=== PATIENT | female | born 1955 | race Hispanic/Latino ===

== ENCOUNTER 2017-09-06 17:47 | Observation (INO) | payer SELFPAY ==
[2017-09-06] MEDS ORDERED: Sodium Chloride 0.9% 500 ML IV STA (18:10)
[2017-09-06 18:24] LABS: BASO % 0.2 % (0.0-2.0); EOS # 0.4 K/uL (0.0-0.7); EOS % 1.5 % (0.0-4.0); HEMATOCRIT 44.2 % (34.0-47.0); LYMPH # 2.1 K/uL (1.0-4.3); LYMPH % 8.6 % (20.0-40.0); MEAN CELL VOLUME 92.4 fl (81.0-99.0); MEAN CORPUSCULAR HEMOGLOBIN 29.9 pg (27.0-31.0); MEAN CORPUSCULAR HGB CONC 32.4 g/dL (33.0-37.0); MONO # 1.1 K/uL (0.0-0.8); MONO % 4.6 % (0.0-10.0); NEUT # 20.9 K/uL (1.8-7.0); NEUT % 85.1 % (50.0-75.0); PLATELET COUNT 279 K/uL (130-400); RED CELL DISTRIBUTION WIDTH 11.9 % (11.5-14.5); WHITE BLOOD COUNT 24.6 K/uL (4.8-10.8)
--- NOTE | 2017-09-06 18:30 | ED PDOC ---
Syncope/Near Syncope/Dizziness Time Seen by Provider: 09/06/17 17:55 Chief Complaint (Nursing): GI Problem Chief Complaint (Provider): Syncope History Per: Patient History/Exam Limitations: no limitations Onset/Duration Of Symptoms: Hrs (x 5) Current Symptoms Are (Timing): Still Present Additional Complaint(s): Blanca Valente is a 61 year old female with a history of hypertension and high cholesterol, presenting to the ED after passing out with associated vomiting and diarrhea, onset about 6 hours ago. Patient was on a bus from [place] at 12 pm today when she started feeling nauseous after eating. She reports taking Gravol, the [place] version of Dramamine, with no relief. 1 hour prior to arrival, she experienced multiple episodes of vomiting and watery diarrhea. Patient fainted for a short amount of time and had no postictal state. She reports feeling abdominal pain at lunch, but none since then. The patient states that she still feels nauseous and had another episode of vomiting while in the emergency room. PMD: none Past Medical History Reviewed: Historical Data, Nursing Documentation, Vital Signs Vital Signs: Last Vital Signs Temp 97.7 F 09/06/17 17:52 Pulse 65 09/06/17 17:52 Resp 16 09/06/17 17:52 BP 132/89 09/06/17 18:10 Pulse Ox 96 09/06/17 17:52 - Medical History PMH: HTN, Hypercholesterolemia Denies: Chronic Kidney Disease - Surgical History Other surgeries: Hysterectomy - Family History Family History: States: [place], CAD, Hypertension - Social History Current smoker - smoking cessation education provided: No Alcohol: None Drugs: Denies - Allergies Allergies/Adverse Reactions: Allergies Allergy/AdvReac Type Severity Reaction Status Date / Time No Known Allergies Allergy Verified 09/06/17 17:55 Review of Systems ROS Statement: Except As Marked, All Systems Reviewed And Found Negative (as per HPI) Constitutional: Positive for: Chills, Malaise, Other (fatigue) Gastrointestinal: Positive for: Nausea, Vomiting (non bloody, non bilious), Diarrhea (watery). Negative for: Abdominal Pain Physical Exam - Reviewed Nursing Documentation Reviewed: Yes Vital Signs Reviewed: Yes - Physical Exam Appears: Positive for: In Acute Distress (actively vomiting in ER, tired appearing) Head Exam: Positive for: ATRAUMATIC, NORMAL INSPECTION Skin: Positive for: Warm, Pallor Eye Exam: Positive for: EOMI, PERRL ENT: Positive for: Pharynx Is (clear), Other (dry mucus membranes) Neck: Positive for: Painless ROM, Supple Cardiovascular/Chest: Positive for: Regular Rate, Rhythm, Chest Non Tender. Negative for: Murmur Respiratory: Positive for: Normal Breath Sounds. Negative for: Wheezing Gastrointestinal/Abdominal: Positive for: Soft. Negative for: Tenderness, Mass , Distended, Guarding Back: Positive for: Normal Inspection. Negative for: Decreased ROM Extremity: Positive for: Normal ROM. Negative for: Deformity Lymphatic: Negative for: Adenopathy Neurologic/Psych: Positive for: Alert, Mood/Affect (mildly anxious). Negative for: Motor/Sensory Deficits - Laboratory Results Result Diagrams: 09/06/17 18:20 09/06/17 18:20 - ECG O2 Sat by Pulse Oximetry: 96 (RA) Pulse Ox Interpretation: Normal Medical Decision Making Medical Decision Making: Time: 18:10 Impression: syncope, vomiting, diarrhea Differential diagnoses include, but are not limited to gastroenteritis, dehydration, electrolyte abnormality, cardiac event Initial Plan: --EKG --CMP --Lipase --Magnesium --Phosphorus --Troponin I --Urine dipstick --EKG [EDNUTRX] --CBC with differentials --Partial Thromboplastin Time --Prothrombin Time --Sodium Chloride IV 500 mls/hr --Pepcid 20 mg IVP --Zofran 8 mg IV Labs demonstrate hypokalemia and marked leukocytosis. --Potassium Chloride 50 ml IVPB Reviewed findings with pt. Needs hospitalization for syncope, hypokalemia and gastroenteritis. DW pt findings and plan of care. Scribe Attestation: Documented by Nelly Lopez, acting as a scribe for Mirna Chao MD. Provider Scribe Attestation: All medical record entries made by the Scribe were at my direction and personally dictated by me. I have reviewed the chart and agree that the record accurately reflects my personal performance of the history, physical exam, medical decision making, and the department course for this patient. I have also personally directed, reviewed, and agree with the discharge instructions and disposition Disposition - Clinical Impression Clinical Impression: Syncope, Gastroenteritis, Hypokalemia Counseled Patient/Family Regarding: Studies Performed, Diagnosis - Disposition Disposition Time: 21:00 Condition: GUARDED - Pt Status Changed To: Hospital Disposition Of: Observation - POA Present On Arrival: Falls Or Trauma
[2017-09-06 18:34] LABS: ALB/GLOB RATIO 1.6 (1.0-2.1); ALKALINE PHOSPHATASE 71 U/L (38-126); ALT/SGPT 34 U/L (9-52); AST/SGOT 33 U/L (14-36); BILIRUBIN,TOTAL 0.7 mg/dl (0.2-1.3); BLOOD UREA NITROGEN 13 mg/dl (7-17); CALCIUM 9.4 mg/dL (8.4-10.2); CARBON DIOXIDE 24 mmol/L (22-30); CHLORIDE 104 mmol/L (98-107); GFR AFRICAN-AMERICAN > 60; GLUCOSE,RANDOM 177 mg/dL (65-105); LIPASE 54 U/L (23-300); MAGNESIUM 1.6 MG/DL (1.6-2.3); PHOSPHOROUS 3.8 mg/dl (2.5-4.5); POTASSIUM 3.1 MMOL/L (3.6-5.0); SODIUM 141 mmol/l (132-148); TOTAL PROTEIN 7.9 G/DL (6.3-8.2)
[2017-09-06] MEDS ORDERED: Potassium CL 10mEq/100ml 100 ML IVPB ONE (18:38)
[2017-09-06] MEDS ORDERED: Potassium CL 10 MEQ/50 ML 50 ML IVPB ONE (18:45)
[2017-09-06 19:19] LABS: PARTIAL THROMBOPLASTIN TIME 30.3 Seconds (25.6-37.1)
[2017-09-06 20:48] LABS: EOSINOPHIL 2 % (0-7); NEUTROPHIL 85 % (42-75); TOTAL CELLS COUNTED 100
[2017-09-06 20:49] LABS: LARGE PLATELETS PRESENT
--- NOTE | 2017-09-06 21:42 | CP.PCM.HP ---
History of Present Illness - History of Present Illness History of Present Illness: CC: n/v/d, syncope HPI: This is a 61 y/o female with HTN and HLD who comes in with n/v/d that started after lunch while she and a group of people were travelling from [place] to [facility]. She had an episode of syncope after a period of time having n/v/d. Denies f/c. Denies CP/SOB. Denies palpitations. Never had syncope in the past. ROS: 14 systems reviewed, negative other than HPI MHx: HTN, HLD; KENDRA on CPAP SHx: Hysterectomy Allergies: NKDA Medications: As per med rec Family Hx: [place]/CAD, HTN Social Hx: Lives with family, no significant tobacco or EtOH Surrogate: Pending Present on Admission - Present on Admission Any Indicators Present on Admission: No Past Patient History - Past Social History Alcohol: None Drugs: Denies - CARDIAC Hx Hypercholesterolemia: Yes Hx Hypertension: Yes - PULMONARY Hx Respiratory Disorders: No - NEUROLOGICAL Hx Neurological Disorder: No - HEENT Hx HEENT Problems: No - RENAL Hx Chronic Kidney Disease: No - ENDOCRINE/METABOLIC Hx Endocrine Disorders: No - HEMATOLOGICAL/ONCOLOGICAL Hx Blood Disorders: No - INTEGUMENTARY Hx Dermatological Problems: No - MUSCULOSKELETAL/RHEUMATOLOGICAL Hx Musculoskeletal Disorders: No - GASTROINTESTINAL Hx Gastrointestinal Disorders: No - GENITOURINARY/GYNECOLOGICAL Hx Genitourinary Disorders: No - PSYCHIATRIC Hx Psychophysiologic Disorder: No Hx Substance Use: No - SURGICAL HISTORY Hx Hysterectomy: Yes - ANESTHESIA Hx Anesthesia: Yes Hx Anesthesia Reactions: No Meds Allergies/Adverse Reactions: Allergies Allergy/AdvReac Type Severity Reaction Status Date / Time No Known Allergies Allergy Verified 09/06/17 17:55 Physical Exam - Constitutional Appears: No Acute Distress - Head Exam Head Exam: ATRAUMATIC, NORMOCEPHALIC - Eye Exam Eye Exam: EOMI, PERRL - ENT Exam ENT Exam: Mucous Membranes Dry - Neck Exam Neck exam: Positive for: Full Rom - Respiratory Exam Respiratory Exam: Clear to Auscultation Bilateral, NORMAL BREATHING PATTERN - Cardiovascular Exam Cardiovascular Exam: REGULAR RHYTHM, +S1, +S2 - GI/Abdominal Exam GI & Abdominal Exam: Normal Bowel Sounds, Soft - Extremities Exam Extremities exam: Positive for: full ROM, normal inspection - Neurological Exam Neurological exam: Alert, CN II-XII Intact, Oriented x3 - Psychiatric Exam Psychiatric exam: Normal Affect, Normal Mood - Skin Skin Exam: Dry, Warm Results - Vital Signs Recent Vital Signs: Last Vital Signs Temp 97.7 F 09/06/17 17:52 Pulse 65 09/06/17 17:52 Resp 16 09/06/17 17:52 BP 132/89 09/06/17 18:10 Pulse Ox 96 09/06/17 19:52 - Labs Result Diagrams: 09/06/17 18:20 09/06/17 18:20 Labs: Laboratory Results - last 24 hr 09/06/17 09/06/17 09/06/17 18:20 18:20 18:20 WBC 24.6 H RBC 4.79 Hgb 14.3 Hct 44.2 MCV 92.4 MCH 29.9 MCHC 32.4 L RDW 11.9 Plt Count 279 MPV 8.0 Neut % (Auto) 85.1 H Lymph % (Auto) 8.6 L Day % (Auto) 4.6 Eos % (Auto) 1.5 Baso % (Auto) 0.2 Neut # 20.9 H Lymph # 2.1 Day # 1.1 H Eos # 0.4 Baso # 0.0 Neutrophils % (Manual) 85 H Band Neutrophils % 1 Lymphocytes % (Manual) 6 L Monocytes % (Manual) 6 Eosinophils % (Manual) 2 Platelet Estimate Normal Large Platelets Present Hypochromasia (manual) Slight PT 13.7 H INR 1.2 APTT 30.3 Sodium 141 Potassium 3.1 L Chloride 104 Carbon Dioxide 24 Anion Gap 16 BUN 13 Creatinine 0.6 L Est GFR ( Amer) > 60 Est GFR (Non-Af Amer) > 60 Random Glucose 177 H Calcium 9.4 Phosphorus 3.8 Magnesium 1.6 Total Bilirubin 0.7 AST 33 ALT 34 Alkaline Phosphatase 71 Troponin I < 0.0120 Total Protein 7.9 Albumin 4.8 Globulin 3.1 Albumin/Globulin Ratio 1.6 Lipase 54 - EKG Data EKG Interpreted by: Myself EKG shows normal: Sinus rhythm Rate: Normal Assessment & Plan (1) Syncope Assessment and Plan: 61 y/o female with n/v/d (likely viral gastroenteritis) who had syncope likely due to volume depletion. -Admit to tele-obs -Serial trops -Consider echo in AM -IVF, Clear liqs -Zofran IV for nausea -Hold HTN medications for now -CPAP tonight at 8 cm H2O -SCDs for dvt px Status: Acute (2) Nausea & vomiting Status: Acute (3) Diarrhea Status: Acute (4) Volume depletion Status: Acute (5) Gastroenteritis Status: Acute (6) DVT prophylaxis Status: Acute
[2017-09-06] MEDS ORDERED: Sodium Chloride 0.9% 1,000 ML IV SCH (21:45)
[2017-09-06 22:43] VITALS: RESP 18
[2017-09-07 07:36] LABS: HEMATOCRIT 36.8 % (34.0-47.0); MEAN CELL VOLUME 92.2 fl (81.0-99.0); MEAN CORPUSCULAR HEMOGLOBIN 31.3 pg (27.0-31.0); MEAN CORPUSCULAR HGB CONC 33.9 g/dL (33.0-37.0); RED CELL DISTRIBUTION WIDTH 12.2 % (11.5-14.5); WHITE BLOOD COUNT 14.5 K/uL (4.8-10.8)
[2017-09-07 07:52] LABS: BLOOD UREA NITROGEN 10 mg/dl (7-17); CALCIUM 8.3 mg/dL (8.4-10.2); CARBON DIOXIDE 26 mmol/L (22-30); CHLORIDE 109 mmol/L (98-107); GFR AFRICAN-AMERICAN > 60; GLUCOSE,RANDOM 109 mg/dL (65-105); POTASSIUM 3.1 MMOL/L (3.6-5.0); SODIUM 143 mmol/l (132-148)
[2017-09-07 08:14] VITALS: BP 129/69; PULSE 76; TEMP 99.5; O2SAT 95
[2017-09-07] MEDS ORDERED: Potassium Chloride 20 mEq/15 ml LIQ UD PO ONE (09:25)
--- NOTE | 2017-09-07 10:15 | CARD ---
APPROVED REPORT EKG Measurement Heart [id number] <Conclusion> Normal sinus rhythm Normal ECG
--- NOTE | 2017-09-07 13:32 | RAD ---
PROCEDURE: CHEST RADIOGRAPH, 1 VIEW HISTORY: syncope COMPARISON: None available. FINDINGS: LUNGS: Clear. PLEURA: No pneumothorax or pleural fluid seen. CARDIOVASCULAR: Normal. OSSEOUS STRUCTURES: No significant abnormalities. VISUALIZED UPPER ABDOMEN: Normal. OTHER FINDINGS: None. IMPRESSION: No active disease.
--- NOTE | 2017-09-07 14:59 | CP.PCM.DIS ---
Provider - Provider Date of Admission: 09/06/17 21:22 Attending physician: Chiquis Devine MD Primary care physician: None Consults: none Time Spent in preparation of Discharge (in minutes): 15 Hospital Course - Lab Results Lab Results: Most Recent Lab Values WBC 14.5 K/uL (4.8-10.8) H 09/07/17 05:20 RBC 4.00 Mil/uL (3.80-5.20) 09/07/17 05:20 Hgb 12.5 g/dL (12.0-16.0) 09/07/17 05:20 Hct 36.8 % (34.0-47.0) 09/07/17 05:20 MCV 92.2 fl (81.0-99.0) 09/07/17 05:20 MCH 31.3 pg (27.0-31.0) H 09/07/17 05:20 MCHC 33.9 g/dL (33.0-37.0) 09/07/17 05:20 RDW 12.2 % (11.5-14.5) 09/07/17 05:20 Plt Count 232 K/uL (130-400) 09/07/17 05:20 MPV 8.0 fl (7.2-11.7) 09/06/17 18:20 Neut % (Auto) 85.1 % (50.0-75.0) H 09/06/17 18:20 Lymph % (Auto) 8.6 % (20.0-40.0) L 09/06/17 18:20 [place] % (Auto) 4.6 % (0.0-10.0) 09/06/17 18:20 Eos % (Auto) 1.5 % (0.0-4.0) 09/06/17 18:20 Baso % (Auto) 0.2 % (0.0-2.0) 09/06/17 18:20 Neut # 20.9 K/uL (1.8-7.0) H 09/06/17 18:20 Lymph # 2.1 K/uL (1.0-4.3) 09/06/17 18:20 [place] # 1.1 K/uL (0.0-0.8) H 09/06/17 18:20 Eos # 0.4 K/uL (0.0-0.7) 09/06/17 18:20 Baso # 0.0 K/uL (0.0-0.2) 09/06/17 18:20 Neutrophils % (Manual) 85 % (42-75) H 09/06/17 18:20 Band Neutrophils % 1 % (0-2) 09/06/17 18:20 Lymphocytes % (Manual) 6 % (20-50) L 09/06/17 18:20 Monocytes % (Manual) 6 % (0-10) 09/06/17 18:20 Eosinophils % (Manual) 2 % (0-7) 09/06/17 18:20 Platelet Estimate Normal (NORMAL) 09/06/17 18:20 Large Platelets Present 09/06/17 18:20 Hypochromasia (manual) Slight 09/06/17 18:20 PT 13.7 Seconds (9.8-13.1) H 09/06/17 18:20 INR 1.2 (0.9-1.2) 09/06/17 18:20 APTT 30.3 Seconds (25.6-37.1) 09/06/17 18:20 Sodium 143 mmol/l (132-148) 09/07/17 05:20 Potassium 3.1 MMOL/L (3.6-5.0) L 09/07/17 05:20 Chloride 109 mmol/L (98-107) H 09/07/17 05:20 Carbon Dioxide 26 mmol/L (22-30) 09/07/17 05:20 Anion Gap 11 (10-20) 09/07/17 05:20 BUN 10 mg/dl (7-17) 09/07/17 05:20 Creatinine 0.6 mg/dl (0.7-1.2) L 09/07/17 05:20 Est GFR ( Amer) > 60 09/07/17 05:20 Est GFR (Non-Af Amer) > 60 09/07/17 05:20 POC Glucose (mg/dL) 169 mg/dL (65-110) H 09/06/17 18:02 Random Glucose 109 mg/dL (65-105) H 09/07/17 05:20 Calcium 8.3 mg/dL (8.4-10.2) L 09/07/17 05:20 Phosphorus 3.8 mg/dl (2.5-4.5) 09/06/17 18:20 Magnesium 1.6 MG/DL (1.6-2.3) 09/06/17 18:20 Total Bilirubin 0.7 mg/dl (0.2-1.3) 09/06/17 18:20 AST 33 U/L (14-36) 09/06/17 18:20 ALT 34 U/L (9-52) 09/06/17 18:20 Alkaline Phosphatase 71 U/L (38-126) 09/06/17 18:20 Troponin I 0.0120 ng/mL (0.00-0.120) 09/07/17 05:20 Total Protein 7.9 G/DL (6.3-8.2) 09/06/17 18:20 Albumin 4.8 g/dL (3.5-5.0) 09/06/17 18:20 Globulin 3.1 gm/dL (2.2-3.9) 09/06/17 18:20 Albumin/Globulin Ratio 1.6 (1.0-2.1) 09/06/17 18:20 Lipase 54 U/L (23-300) 09/06/17 18:20 - Hospital Course Hospital Course: 61 y/o female with HTN and HLD presented to ER for evaluation for multiple episodes of nausae, vomiting , diarrhea after eating a sandwich. As per patient also her friemnds were not feeling so well. She states that she was traveling from [place] and when she got on the bus , felt very hot , started ebeing diaphoretic , seeing flash lights and had LOC for like 10 sec with no urinary or bowel incontinence and no seizure like activity no focal or generalized weakness. She denied any head trauma . Patient brought to ER for evaluation and was given Zofran IV , PPI and IVF. Denies palpitations, chest pain SOB, headache, blurry vision . She was placed under observation in telemetry with diagnosis of gastroenteritis and syncopy secondary to volume dep,letion and vasovagal refelx At present patient is feeling well,hemodynamically stable Received IVF and K supplements Her diarrhea and vomiting resolved and her WBC count treneded down with no antibiotics from 24 K -- 14 K Discussed with patient results and all questions answered. Patient is hemodynamically stable. Will discharge home. She agrees with plan Resume her home medications. Discharge Exam - Head Exam Head Exam: ATRAUMATIC, NORMAL INSPECTION - Eye Exam Eye Exam: EOMI, Normal appearance, PERRL Pupil Exam: NORMAL ACCOMODATION - ENT Exam ENT Exam: Mucous Membranes Moist, Normal Exam - Neck Exam Neck exam: Full Rom, Normal Inspection - Respiratory Exam Respiratory Exam: Clear to PA & Lateral, NORMAL BREATHING PATTERN. absent: Rales, Rhonchi, Wheezes - Cardiovascular Exam Cardiovascular Exam: REGULAR RHYTHM, RRR, +S1, +S2. absent: JVD - GI/Abdominal Exam GI & Abdominal Exam: Normal Bowel Sounds, Soft. absent: Guarding, Rebound, Tenderness - Rectal Exam Rectal Exam: Deferred - Extremities Exam Extremities exam: normal capillary refill, normal inspection, pedal pulses present - Back Exam Back exam: NORMAL INSPECTION - Neurological Exam Neurological exam: Alert, CN II-XII Intact, Normal Gait, Oriented x3, Reflexes Normal - Psychiatric Exam Psychiatric exam: Normal Affect, Normal Mood - Skin Skin Exam: Dry, Intact, Normal Color, Warm Discharge Plan - Discharge Medications Prescriptions: Ondansetron [Zofran] 4 mg PO Q8H PRN #20 tab PRN Reason: Nausea/Vomiting - Follow Up Plan Condition: GUARDED Disposition: HOME/ ROUTINE Instructions: Gastroenteritis (DC), Syncope (DC) Additional Instructions: Follow up with Her PMD
== END 2017-09-07 14:30 | disposition home or self-care (01) ==
LOC: H.ER 17:47 → H.ERHOLD 21:22 → H.TEL 23:19
PROVIDERS: ADMIT Internal Medicine; ATTEND Internal Medicine
DX: K52.9 Noninfective gastroenteritis and colitis, unspecified (principal); E86.9 Volume depletion, unspecified; E78.5 Hyperlipidemia, unspecified; E87.6 Hypokalemia; E78.00 Pure hypercholesterolemia, unspecified; I10 Essential (primary) hypertension; R55 Syncope and collapse; G47.33 Obstructive sleep apnea (adult) (pediatric)
CPT/HCPCS: 36415; 71010; 80048; 80053; 82948; 83690; 83735; 84100; 84484; 85025; 85027; 85610; 85730; 93005; 94660; 96360; 96374; 99283; G0378; J2405; J3480; J7040